=== PATIENT | male | born 1980 | race Caucasian/White ===

== ENCOUNTER 2022-03-31 08:28 | Outpatient (CLI) | payer OTHER, SELFPAY ==
[2022-03-31 10:26] LABS: Cholesterol* 165 mg/dL (90-199); Glucose* 91 mg/dL (60-115); Triglycerides* 71 mg/dL (40-149)
[2022-03-31 10:27] LABS: HDL Cholesterol* 59 mg/dL (>=40); LDL Cholesterol Calculated 92 mg/dL (<100)
== END 2022-03-31 08:29 | disposition home or self-care (01) ==
LOC: NFLDREF 08:29
PROVIDERS: PCP Family Medicine; Visit Provider Family Medicine
DX: Z00.00 Encounter for general adult medical examination without abnormal findings (principal); Z13.1 Encounter for screening for diabetes mellitus; Z13.6 Encounter for screening for cardiovascular disorders
CPT/HCPCS: 80061; 82947

== ENCOUNTER 2022-07-20 09:45 | Outpatient (CLI) | payer OTHER, SELFPAY ==
--- NOTE | 2022-07-20 10:00 | CRLHL7_ITS ---
For Patients: As a result of the Century Cures Act, medical imaging exams and procedure reports are released immediately into your electronic medical record. You may view this report before your referring provider. If you have questions, please contact your health care provider. Indication: SINUSITIS Technique: Performed without IV contrast Comparison: None available Findings: Frontal sinuses: Clear. Ethmoid sinuses: Clear. Maxillary sinuses: Mucosal thickening within the left maxillary sinus with small mucous retention cysts. Clear right maxillary sinus. The maxillary sinus drainage pathway is patent on the right and occluded on the left. Sphenoid sinuses: Clear, including both sphenoethmoidal recesses. Nasal Cavity: Mild rightward curvature of the nasal septum. Nasal turbinates are normal. No TMJ abnormalities identified. The visualized portions of the orbits, intracranial contents and upper soft tissue neck are grossly negative. Impression: 1. Moderate left maxillary sinus disease with obstruction of sinus drainage pathway. 2. Mild rightward curvature of the nasal septum. Please note that all CT scans at this facility use dose modulation, iterative reconstruction, and/or weight-based dosing when appropriate to reduce radiation dose to as low as reasonably achievable. Dictated by Edward Dozier MD @ 07/20/2022 11:55:14 AM (Electronically Signed)
== END 2022-07-20 09:46 | disposition home or self-care (01) ==
LOC: CT 09:45
PROVIDERS: PCP Family Medicine; Visit Provider Otolaryngology
DX: J32.9 Chronic sinusitis, unspecified (principal); J32.0 Chronic maxillary sinusitis
CPT/HCPCS: 70486

== ENCOUNTER 2023-03-14 14:30 | Outpatient (RCR) | payer OTHER, SELFPAY | END 2023-04-26 11:11 | disposition home or self-care (01) | PROVIDERS: PCP Family Medicine; Visit Provider Family Medicine | DX: G57.01 Lesion of sciatic nerve, right lower limb (principal); M25.551 Pain in right hip; Z51.89 Encounter for other specified aftercare | CPT/HCPCS: 97110; 97140; 97161 ==